=== PATIENT | female | born 1960 | race Caucasian/White ===

== ENCOUNTER 2017-07-11 07:37 | Emergency (ER) | payer MEDICAID ==
[2015-06-04 09:52] VITALS: BMI 17.6
[~2017-07-11 07:37] MED LIST: LAMICTAL200 MG PO; LIBRIUM 10 MG C10 MG PO; NEURONTIN 300300 MG PO; NICODERM C1 PATCH .3 TRANSDERM; PROTONIX20 MG PO; PROZAC40 MG PO; THERAGRAN M PO; THERAGRAN M [BK1 TAB PO; VISTARIL50 MG PO; ZANTAC150 MG PO; ZOLOFT100 MG PO
[2017-07-11 08:07] LABS: BASOPHILS 1.2 % (0-2); EOSINOPHILS 2.1 % (0-7); HEMATOCRIT 30.8 % (36.0-48.0); HEMOGLOBIN 9.2 g/dL (12-16); IMMATURE GRANULOCYTES 0.1 % (0-5); LYMPHOCYTES 46.4 % (15-50); MCH 24.3 pg (26.0-34.0); MCHC 29.9 g/dL (31.0-37.0); MCV 81.3 fL (80.0-100.0); MEAN PLATELET VOLUME 8.3 fL (7.4-10.4); MONOCYTES 7.1 % (2-11); NEUTROPHILS 43.1 % (40-80); PLATELET COUNT 356 10x3/uL (130-400); RBC 3.79 10x6/uL (4.00-5.40); RDW 19.4 % (11.5-14.5); WBC 7.5 10x3/uL (4.8-10.8)
[2017-07-11 08:16] LABS: ANION GAP 16.3 mmol/L (8-16); CALCIUM 7.9 mg/dL (8.5-10.1); CARBON DIOXIDE 22.9 mmol/L (21.0-32.0); CREATININE - SERUM 0.9 mg/dL (0.6-1.3); POTASSIUM - SERUM 3.2 mmol/L (3.5-5.1)
[2017-07-11 08:40] LABS: APPEARANCE CLEAR (CLEAR); BILIRUBIN NEGATIVE (NEGATIVE); COLOR YELLOW (YELLOW); GLUCOSE NEGATIVE (NEGATIVE); KETONE NEGATIVE (NEGATIVE); NITRITE NEGATIVE (NEGATIVE); PROTEIN NEGATIVE (NEGATIVE); SPECIFIC GRAVITY 1.015 (1.005-1.020); UROBILINOGEN NORMAL (NORMAL)
[2017-07-11 08:47] LABS: UDS - AMPHET NEGATIVE QUAL (NEGATIVE); UDS - BARB NEGATIVE QUAL (NEGATIVE); UDS - BENZO NEGATIVE QUAL (NEGATIVE); UDS - COCAINE NEGATIVE QUAL (NEGATIVE); UDS - OPIATE NEGATIVE QUAL (NEGATIVE); UDS - PCP NEGATIVE QUAL (NEGATIVE); UDS - THC NEGATIVE QUAL (NEGATIVE)
[2017-07-11 08:52] LABS: BACTERIA FEW /hpf (NONE SEEN); EPITHELIAL CELLS RARE /hpf (0-5); HYALINE CAST OCC /lpf (NONE SEEN); MUCUS >1+ /lpf (NONE SEEN); RED CELLS - URINE RARE /hpf (0-5); WHITE CELLS - URINE 0-5 /hpf (0-5)
== END 2017-07-11 13:09 | disposition home or self-care (01) ==
LOC: D.ER 07:37
PROVIDERS: Emergency Medicine
DX: R07.89 Other chest pain (principal); F10.10 Alcohol abuse, uncomplicated; D64.9 Anemia, unspecified; F17.200 Nicotine dependence, unspecified, uncomplicated